=== PATIENT | male | born 1955 | race Caucasian/White ===

== ENCOUNTER 2017-04-08 11:51 | Emergency (ER) | payer OTHER ==
[~2017-04-08] VITALS: Ht 160 cm; Wt 65.8 kg
[~2017-04-08 11:51] MED LIST: ZITHROMAX Z PA250 MG PO
[2017-04-08] MEDS ORDERED: AUGMENTIN 500 M1 TAB PO (12:10)
== END 2017-04-08 12:37 | disposition home or self-care (01) ==
LOC: ED 11:51
DX: S50.812A Abrasion of left forearm, initial encounter (principal); S50.811A Abrasion of right forearm, initial encounter; R03.0 Elevated blood-pressure reading, without diagnosis of hypertension; Z29.12 Encounter for prophylactic antivenin; Z23 Encounter for immunization; W55.01XA Bitten by cat, initial encounter; Y93.89 Activity, other specified; Y92.9 Unspecified place or not applicable; Y99.9 Unspecified external cause status

== ENCOUNTER 2017-04-11 10:54 | Emergency (ER) | payer OTHER ==
[~2017-04-11] VITALS: Ht 160 cm; Wt 65.8 kg
[~2017-04-11 10:54] MED LIST changes: +AUGMENTIN 500 M1 TAB PO
== END 2017-04-11 11:26 | disposition home or self-care (01) ==
LOC: ED 10:54
DX: Z23 Encounter for immunization (principal)

== ENCOUNTER 2017-04-15 09:43 | Emergency (ER) | payer OTHER | END 2017-04-15 10:12 | disposition home or self-care (01) | LOC: ED 09:43 | DX: Z23 Encounter for immunization (principal); R03.0 Elevated blood-pressure reading, without diagnosis of hypertension ==